=== PATIENT | male | born 1990 | race Caucasian/White ===

== ENCOUNTER 2016-09-11 16:08 | Emergency (ER) | payer SELFPAY ==
[~2016-09-11] VITALS: Ht 175.3 cm; Wt 72.6 kg
[2016-09-11 16:23] VITALS: BP 128/73
[2016-09-11] MEDS ORDERED: IBUP200C15 PO (16:29)
--- NOTE | 2016-09-11 17:50 | NUR ---
PATIENT LEFT WITHOUT BEING SEEN BY DR. BAEZ. NO FURTHER CARE PROVIDED FOR PATIENT.
== END 2016-09-11 17:50 | disposition left against medical advice (07) ==
LOC: MED 16:08
DX: Z98.890 Other specified postprocedural states (principal); Z53.21 Procedure and treatment not carried out due to patient leaving prior to being seen by health care provider

== ENCOUNTER 2017-02-28 03:58 | Emergency (ER) | payer SELFPAY ==
[~2017-02-28] VITALS: Ht 175.3 cm; Wt 72.6 kg
[~2017-02-28 03:58] MED LIST: IBUP200C15 PO
[2017-02-28 04:04] VITALS: BP 138/83
--- NOTE | 2017-02-28 04:09 | NUR ---
PT AMBULATED TO ER BED 11 WITH STEADY GAIT
--- NOTE | 2017-02-28 04:10 | NUR ---
26Y M BIB FAMILY C/O HEADACHE RADIATING TO THE RIGHT EAR X 2 DAYS. PT STATES PAIN IS CONSTANT, 10/10 PAIN. PT STATES HE ALSO HAS SOME NAUSEA. PT DENIES ANY SOB, CP AT THE MOMENT. PT AMBULATED TO ER BED WITH STEADY GAIT. PT AAOX4. BREATHING IS UNLABORED AND CLEAR. ER MD MADE AWARE.
--- NOTE | 2017-02-28 04:12 | NUR ---
Patient being evaluated by physician at bedside.
[2017-02-28] MEDS ORDERED: NACL 0.9% 1,000 ML IV ONE (04:21)
[2017-02-28] MEDS ORDERED: METOCLOPRAMIDE 10 MG/2 ML INJ VIAL IVP ONE (04:25)
[2017-02-28] MEDS ORDERED: diphenhydrAMINE 50 MG/ML VIAL IVP ONE (04:25)
[2017-02-28] MEDS ORDERED: KETOROLAC 30 MG/ML VIAL IVP ONE (05:00)
--- NOTE | 2017-02-28 05:20 | NUR ---
Patient discharged with v/s stable. Written and verbal after care instructions given and explained. Patient verbalized understanding. Ambulatory with steady gait. All questions addressed prior to discharge. Advised to follow up with PMD.
== END 2017-02-28 04:12 | disposition home or self-care (01) ==
LOC: MED 03:58
DX: H60.91 Unspecified otitis externa, right ear (principal); R51 Headache; R11.0 Nausea; Z79.899 Other long term (current) drug therapy
CPT/HCPCS: 96361; 96374; 96375; 99284; J1200; J1885; J2765; J7030